=== PATIENT | male | born 1955 | race Caucasian/White ===

== ENCOUNTER 2023-06-26 19:36 | Inpatient (IN) | payer MEDICARE, OTHER, SELFPAY ==
[2023-06-26] VITALS (8 sets, daily range): BP systolic 124–162; BP diastolic 96–105
--- NOTE | 2023-06-26 17:54 | ED.GENMED ---
History of Present Illness
General
Chief Complaint: DVT/Possible Blood Clot
Source: patient
Exam Limitations: none
Time Seen by Provider: 06/26/23 17:10
Nursing documentation reviewed up to this point in time: agreed with
Travel History
Have you had any contact with someone who has COVID-19?: No
Do you have any symptoms of coronavirus? Fever > 100 degrees, chills, cough, shortness of breath, sore throat, loss of taste or smell, muscle aches, or headache?: No
History of Present Illness
History of Present Illness:
Patient sent to ED by PCP for popliteal aneurysm. States Sunday right leg below knee was 'rock hard'. Sunday he complained of hardness and severe pain to his leg. Today he was sent by PCP for US which reveals popliteal aneurysm 3.6x3.2cm. No
prior history of same. Denies any chest pain/pressure. Ambulating but with difficulty due to pain.
Past History
Past History
ED Past Medical History: Other (Kidney stone)
ED Past Surgical History: Other (wisdom tooth extraction)
Social History
Tobacco: Non-smoker
Alcohol: Daily (2 glasses of wine daily)
Drug: None
Personal:
Living: with family
Employment: Employed
Family History
Family History: Other (nc)
Review of Systems
Review of Systems
Allergies reviewed?: Yes
All Other Systems: ROS reviewed and negative except as documented in HPI and ROS
EENT: Reports no symptoms
Respiratory: Reports no symptoms
Cardiac: Reports other (right popliteal aneurysm. Pain RLE)
ABD/GI: Reports no symptoms
: Reports no symptoms
Musculoskeletal: Reports other (RLE pain)
Skin: Reports no symptoms
Neurological: Reports no symptoms
Psychiatric: Reports no symptoms
Phy Exam
General Physical Exam
General Presentation: well appearing and no apparent distress
General age: appears stated age
General Skin: warm and dry
General Habitus: normal
General Mental: alert
General Hydration: appears well hydrated
Cardiovascular Exam
Cardiovascular Exam: regular rate/rhythm and no edema
Pulmonary Exam
Pulmonary Exam: lungs clear and no respiratory distress
Musculoskeletal Exam
Musculoskeletal Exam: full ROM and neuro vasc intact (Calf pain with right foot flexion. Sensation intact but decreased compared to left. Stron DP. PT by doppler)
Skin Exam
Skin Exam: normal color, warm/dry and no rash
Psychiatric Exam
Psychiatric Exam: normal mood/affect
Course
Orders/Labs/Results
Orders:
Orders
06/26/23 Dinner
Regular
At Your Request: Full Participation
06/26/23 17:55
Heparin 7,000 units IV NOW STA
06/26/23 18:00
Heparin 54717 Units/250 ml 25,000 units in 250 ml IV PER PROTOCOL
Weight to be used for heparin protocol in kilograms (kg):: 87
Protocol:: DVT/PE
PTT Goal Range to be used:: PTT 73 to 111 seconds
Order type:: Initial
INITIAL Infusion Dose (UNITS/KG/hr) & then follow protocol:: 18 units/kg/hr
Infusion Dose in UNITS/hr & then follow protocol (UNITS/hr):: 1,600
INFUSION RATE in mL/hr & then follow protocol (mL/hr):: 16
For DVT/PE algorithm, re-bolus for low PTT?: Yes
PTT less than or equal to 64 seconds:: Re-bolus 80 units/kg (max 10,000units). Increase by 300 units/hr
(+ 3mL/hr)
PTT 64.1 to 72.9 seconds:: Re-bolus 40 units/kg (max 5,000 units). Increase by 200 units/hr
(+ 2mL/hr)
PTT 73 to 111 seconds:: Target Range. No change in rate.
PTT 111.1 to 130.9 seconds:: Decrease rate by 200 units/hr (- 2 mL/hr)
PTT 131 to 199.9 seconds:: HOLD for 1 hr. Then decrease by 300 units/hr (- 3mL/hr)
PTT greater than or equal to 200 seconds:: HOLD for 2 hrs & Notify Provider. Then decrease by 300 units/hr
(- 3mL/hr)
Lab follow-up:: Each change, PTT q6h until 2 consecutive are therapeutic. Then
PTT daily.
06/26/23 18:07
Complete Blood Count/With Diff Urgent
Comprehensive Metabolic Panel Urgent
PTT Urgent
Prothrombin Time Urgent
06/26/23 18:31
CT Abd Aorta Angio W/ Run Off Urgent
Comment:
Reason For Exam: WITH DELAYED IMAGING to eval tibial runoff
06/26/23 18:32
Vascular Surgery Consult Urgent
Consulting Provider: Ninoska Majano
Was physician already notified: Yes
06/26/23 18:47
Heparin 7,000 units IV PRN PRN
06/26/23 18:48
Heparin 3,500 units IV PRN PRN
06/26/23 19:19
Admit/Transfer Patient As Directed
Co-Sign Provider:
Level of Care: Inpatient admission
Assign to:: Medical/Surgical
Physician / Group: Chrissy/Hospitalist
Diagnosis: Right leg popliteal aneurysm
Reason for Hospitalization: popliteal artery aneurysm
Expected length of stay greater than two midnights?: Yes
ELOS- Estimated Length of Stay in days: 4
I certify the patient meets the requirements for IP care: Yes
06/26/23 19:20
Code Status As Directed
Resuscitation Status: Full Code
06/26/23 20:54
Acetaminophen [Tylenol] 650 mg PO Q4HPRN PRN
Oxycodone [Roxicodone] 5 mg PO Q4HPRN PRN
06/26/23 20:54
EKG [Electrocardiogram (*1)] Routine
Reason for Study: PreOp
Activity As Directed
Activity Level: Out of Bed-Early Mobility
Vital Signs As Directed
Frequency: Per unit guidelines
CXR2 [CR Chest - 2 Views ] Routine
Comment:
Reason For Exam: pre-op
06/26/23 21:41
Urinalysis Reflex To Culture Routine
Date Specimen was Collected: 06/26/23
Time Specimen was Collected: 21:31
06/27/23 01:20
PTT Urgent
06/27/23 06:49
Basic Metabolic Panel IN AM
Cardiovascular Evaluation IN AM
Complete Blood Count/With Diff IN AM
Abnormal Lab Results
06/26/23
18:07
MCH 31.4 H pg
(27.0-31.0)
AST 65 H U/L
(17-59)
06/26/23 18:07
06/26/23 18:07
Vital Signs
Initial and Last Documented VS:
Initial Vital Signs
Temp Pulse Resp BP Pulse Ox
97.9 F 75 18 162/100 98
06/26/23 16:19 06/26/23 16:19 06/26/23 16:19 06/26/23 16:19 06/26/23 16:19
Last Documented Vital Signs
Temp Pulse Resp BP Pulse Ox
98.6 F 91 14 114/78 96
06/27/23 16:30 06/27/23 17:30 06/27/23 17:30 06/27/23 17:30 06/27/23 17:53
*Radiology
Radiology exam reviewed: radiology read reviewed
*Pulse Oximetry
Patient hypoxic: no
*Critical Care Note
Total Time (30-74mins, 75-104mins- exclusive of procedures): Not Applicable
Update Note
Update Note:
Case discussed with Dr. Majano. Heparin infusion, CTA abd. aorta with runoff ordered at her request. He will be admitted to hospitalist service, Dr. Majano to consult.
ED Attending Note
-
Portions of this chart may have been created with voice recognition software.� Occasional wrong word or��sound alike� substitutions may have occurred due to the inherent limitations of voice recognition software.
Discharge Plan
Departure
Patient Disposition: Admit
Date of Disposition: 06/26/23
Time of Disposition: 18:06
Presentation/result/management discussed w/ accepting MD/DO: Hospitalist
Patient with high blood pressure during this ER visit?: No
Condition: Fair
Covid-19: Not Applicable
Discharge Problem:
Aneurysm artery, popliteal
Interventions
Interventions:
*Risk Screen - Suicide Last Done: 06/26/23 16:23
*General Assessment Last Done: 06/26/23 16:23
*Neglect/Abuse Screening Last Done: 06/26/23 16:23
ED- Fall Risk Assessment Last Done: 06/26/23 18:37
*ED COVID-19 Vaccine History Last Done: 06/26/23 18:35
*Nursing Disposition Last Done: 06/27/23 11:13
ED- Cardiac Assessment Last Done: 06/26/23 18:37
ED- Pulmonary Assessment Last Done: 06/26/23 18:37
ED-Peripheral Vascular Assessment Last Done: 06/26/23 18:37
ED-Skin Assessment Last Done: 06/26/23 18:37
Discharge Date and Time
Discharge Date/Time: 06/27/23 11:16
--- NOTE | 2023-06-26 17:54 | EDRN ---
Pt moved from [facility] to room #20 in [facility] at this time.
[2023-06-26 18:15] LABS: % Basophils 0.9 % (0-2); % Eosinophils 3.7 % (0-6); % Immature Granulocytes 0.4 % (0-0.5); % Lymphocytes 29.1 % (20.5-51.1); % Monocytes 8.1 % (1.7-9.3); % Neutrophils 57.8 % (42.2-75.2); Absolute Basophils 0.1 10^3/uL (0-0.2); Absolute Eosinophils 0.3 10^3/uL (0-0.7); Absolute Monocytes 0.6 10^3/uL (0.1-0.6); Absolute Neutrophils 4.1 10^3/uL (1.4-6.5); Mean Corp Hgb Conc. 35.6 g/dL (33.0-37.0); Mean Corpuscular Hgb 31.4 pg (27.0-31.0); Mean Corpuscular Volume 88.4 fL (80.0-94.0); Mean Platelet Volume 9.4 fL (7.4-10.4); Nucleated Red Blood Cells % 0 % (-); Platelet Count 270 10^3/uL (130-400); Red Blood Cell Count 5.09 10^6/uL (4.70-6.10); Red Cell Dist. Width 12.4 % (11.5-14.5)
[2023-06-26 18:28] LABS: INR 1.04; PT 13.4 Sec (11.4-14.6)
[2023-06-26 18:29] LABS: APTT 32.2 Sec (23.4-35.0)
--- NOTE | 2023-06-26 18:32 | EDRN ---
Dr. Lowe in room w/ pt.
--- NOTE | 2023-06-26 18:42 | EDRN ---
Pharmacy called to verify heparin
[2023-06-26 18:49] LABS: ALT (SGPT) 43 U/L (0-50); AST (SGOT) 65 U/L (17-59); Albumin 4.8 g/dl (3.5-5.0); Alkaline Phosphatase 94 U/L (38-126); Blood Urea Nitrogen 10 mg/dl (9-20); Calcium 9.6 mg/dl (8.4-10.2); Carbon Dioxide 28 mmol/L (22-30); Chloride 103 mmol/L (98-107); Glucose 93 mg/dl (70-99); Potassium 4.6 mmol/L (3.5-5.1); Sodium 138 mmol/L (135-145); Total Bilirubin 0.5 mg/dl (0.2-1.3); Total Protein 7.6 g/dl (6.3-8.2); eGFR > 60.00
[2023-06-26] MEDS: HEPARIN 7000 UNITS IV (18:52)
[2023-06-26] MEDS: HEPARIN 25000 UNITS/250 ML IV (18:53)
--- NOTE | 2023-06-26 19:25 | W.PN.HOSP.TC ---
Addendum entered and electronically signed by Duane Lowe MD 06/26/23 20:01:
elevated BP noted, will start Toprol XL
Original Note:
Today's Communication/Plan
-
for CT-A now
Assessment / Plan
Assessment / Plan
Rt popliteal artery aneurysm. No hx of trauma to the area
The right common femoral, femoral, popliteal, peroneal, and posterior tibial veins are patent. There is no sonographic evidence for deep venous thrombosis.
A popliteal artery aneurysm measures 3.6 x 3.2 cm. Peripheral hypoechoic thrombus is demonstrated within the aneurysm.
Regular Etoh consumption
Pt states generally 2 glasses of wine per day, but can go many days without Etoh and does not have a problem
P; Heparin drip ordered
check lipid profile
Vas Surgery consult
Anticipated Discharge: > 48 hours
Subjective/Interval History
-
Date of Service: June 26, 2023
Rt popliteal pain onset 06/22, eased, recurred again 06/24 eased and then became more intense this morning
Objective Data
-
Labs:
Laboratory Results
06/26/23
18:07
WBC 7.0
Hgb 16.0
Hct 45.0
Plt Count 270
PT 13.4
INR 1.04
APTT 32.2
Sodium 138
Potassium 4.6
Chloride 103
Carbon Dioxide 28
BUN 10
Creatinine 0.7
Glucose 93
Calcium 9.6
Total Bilirubin 0.5
AST 65 H
ALT 43
Alkaline Phosphatase 94
Vital Signs:
Vital Signs
Temp Pulse Resp BP Pulse Ox
98.2 F 82 16 147/105 98
06/26/23 18:35 06/26/23 18:35 06/26/23 18:35 06/26/23 18:35 06/26/23 18:35
Review of Systems
-
History Source: Patient
Constitutional: Denies Fever
EENT: Reports No Symptoms Reported
Respiratory: Reports No Symptoms
Cardiac: Reports No Symptoms
Abdomen/GI: Reports No Symptoms
Musculoskeletal: Reports Other (rt popliteal pain)
Physical Exam
-
General: Well Developed, Well Nourished and No Apparent Distress
HEENT: Normocephalic, Atraumatic and Moist Mucous Membranes
Respiratory: Clear to Auscultation; Negative Wheezes, Rales or Rhonchi
Cardiac: Regular Rhythm and S1/S2
GI: Soft, Nontender and Nondistended
Musculoskeletal: No Clubbing, No Cyanosis, No Edema and Other (normal peripheral pulses, tender in rt popliteal fossa); Negative Edema, Right Lower Extrem or Edema, Left Lower Extrem
Neuro: Awake, Alert and Oriented
[2023-06-26] MEDS: TOPROL XL 25 MG PO (21:38)
[2023-06-26 21:56] LABS: Urine Albumin Negative (Neg - Trace); Urine Bilirubin Negative (Negative); Urine Character Clear (Clear); Urine Color Yellow; Urine Glucose Negative (Negative); Urine Ketone Trace (Negative); Urine Leukocyte Negative (Negative); Urine Nitrite Negative (Negative); Urine Occult Blood Negative (Negative); Urine Specific Gravity 1.005 (<1.030); Urine Urobilinogen Negative (Neg - 1+)
[2023-06-27] VITALS (38 sets, daily range): BP systolic 91–126; BP diastolic 66–93; BMI 26.9
[2023-06-27 01:51] LABS: APTT 122.1 Sec (23.4-35.0)
[2023-06-27 07:11] LABS: % Basophils 0.9 % (0-2); % Eosinophils 3.8 % (0-6); % Immature Granulocytes 0.3 % (0-0.5); % Lymphocytes 25.6 % (20.5-51.1); % Monocytes 9.4 % (1.7-9.3); Absolute Basophils 0.1 10^3/uL (0-0.2); Absolute Eosinophils 0.2 10^3/uL (0-0.7); Absolute Lymphocytes 1.5 10^3/uL (1.2-3.4); Absolute Monocytes 0.6 10^3/uL (0.1-0.6); Absolute Neutrophils 3.5 10^3/uL (1.4-6.5); Hemoglobin 14.8 g/dL (13.0-18.0); Mean Corp Hgb Conc. 34.4 g/dL (33.0-37.0); Mean Corpuscular Hgb 31.1 pg (27.0-31.0); Mean Corpuscular Volume 90.3 fL (80.0-94.0); Mean Platelet Volume 9.9 fL (7.4-10.4); Nucleated Red Blood Cells % 0 % (-); Platelet Count 231 10^3/uL (130-400); Red Blood Cell Count 4.76 10^6/uL (4.70-6.10); Red Cell Dist. Width 12.6 % (11.5-14.5); White Blood Cell Count 5.9 10^3/uL (4.8-10.8)
[2023-06-27 07:18] LABS: APTT 87.2 Sec (23.4-35.0)
[2023-06-27 07:30] LABS: Blood Urea Nitrogen 11 mg/dl (9-20); Carbon Dioxide 24 mmol/L (22-30); Chloride 106 mmol/L (98-107); Estimated Creatinine Clearance 104 ml/min; Glucose 97 mg/dl (70-99); HDL Cholesterol 50 mg/dl; LDL Cholesterol, Calculated 138 mg/dl; Potassium 4.4 mmol/L (3.5-5.1); Sodium 135 mmol/L (135-145); Total Cholesterol 215 mg/dl (50-199); Triglyceride 139 mg/dl (10-149); Very Low Density Lipoprotein 27 mg/dl (0-30); eGFR > 60.00
--- NOTE | 2023-06-27 07:48 | W.PN.UPDATE ---
Update Note
Progress Note Update
Seen and examined in the emergency room with LAW EXAMINER. Full consultation to follow. Briefly 67-year-old with no major medical history. No prior leg pain. On Sunday 4 days ago he relatively acutely developed pain through the right calf. He has a
history of sciatic pain that radiates down from the back towards the buttock and thigh. But this was very different. It was only below the knee. Was very painful on and off the next couple days to the point that he could not even walk. Notes
that every time he tries to bend his leg he has severe pain in the back of the calf. Imaging in the emergency room demonstrated popliteal artery aneurysm. Patient thinks that his father may have had a popliteal artery aneurysm. He is not sure but
he had an incision behind the knee to repair what sounds like an aneurysm. Denies any personal or family history of abdominal or thoracic aortic aneurysms that he is aware of.
On exam/he is awake and alert. He is in no acute distress. Breathing is unlabored. Abdomen is soft. Lower extremity with 2+ right-sided femoral pulse palpable, 3+ popliteal pulse. Easily palpable pulsatile mass. He is not tender overlying the
pulsatile mass. Below the knee and the calf it is very soft. His compartments are all soft. There is no swelling or fullness. However he is very tender in the posterior compartment muscles. Foot is warm and well-perfused with palpable pedal
pulses. Left side with 2+ femoral, popliteal, pedal pulses palpable as well.
CT angiogram reviewed. Fairly sizable popliteal artery aneurysm with difficulty discerning extent of aneurysm to the surrounding muscle planes but likely about 3.7 x 3.3 cm aneurysm with significant mural thrombus. Flow lumen is preserved however.
At the edge of the mural thrombus there is attenuation of the contrast suggesting later color that may indicate layering.
Plan/ Popliteal artery aneurysm right lower extremity causing significant pain. It is not nerve type pain but rather pain and tenderness in the calf muscles. On the CT scan based on the findings I cannot tell whether there is been a localized
contained rupture that is causing this pain. Regardless based on the size and his pain etiology and no other clear-cut cause would recommend repair. Relatively urgently. Discussed this all with him. Discussed that his pain in the muscles is not
typical of popliteal artery aneurysm and therefore there is the possibility of this not relieving his pain in the calf. However regardless would recommend repair based on the size, extent of mural thrombus, concern for possible risk of rupture
based on attenuation of contrast. Discussed procedure at length. Discussed options including endovascular pair versus open surgical repair. Based on location, his candidacy for repair, would recommend posterior approach for open surgical
popliteal artery aneurysm repair. Patient understands all wishes to proceed. Will add him onto the schedule for urgent repair RIGHT popliteal artery aneurysm today.
[2023-06-27] MEDS: PERIDEX 0.12% ORAL RINSE 15 ML PO (09:02)
[2023-06-27] MEDS: BACTROBAN 2% OINTMENT 2 APPLIC NASAL (09:02)
--- NOTE | 2023-06-27 09:16 | W.PN.HOSP.TC ---
Today's Communication/Plan
-
Vasc Surg intervention now
Assessment / Plan
Assessment / Plan
Rt popliteal artery aneurysm. No hx of trauma to the area
The right common femoral, femoral, popliteal, peroneal, and posterior tibial veins are patent. There is no sonographic evidence for deep venous thrombosis.
A popliteal artery aneurysm measures 3.6 x 3.2 cm. Peripheral hypoechoic thrombus is demonstrated within the aneurysm.
Reviewed with Dr. Dixon, plan is for vascular intervention this morning
Regular Etoh consumption
Pt states generally 2 glasses of wine per day, but can go many days without Etoh and does not have a problem
Borderline HTN
started on Toprol XL, with BP 120/91, will continue for now
Chol 215
HDL 50
LDL 138
will discuss with Vasc surg if there preference would be to add statin
P; Heparin drip ordered, will be stopped for planned intervention
Vasc Surgery consult appreciated
Anticipated Discharge: 24 - 48 hours
Subjective/Interval History
-
Date of Service: June 27, 2023
No chest pain, leg does not hurt as much this morning
Objective Data
-
Labs:
Laboratory Results
06/27/23 06/27/23 06/27/23
01:20 06:49 13:00
WBC 5.9
Hgb 14.8
Hct 43.0
Plt Count 231
APTT 122.1 H 87.2 H Pending
Sodium 135
Potassium 4.4
Chloride 106
Carbon Dioxide 24
BUN 11
Creatinine 0.7
Glucose 97
Calcium 9.0
Vital Signs:
Vital Signs
Temp Pulse Resp BP Pulse Ox
98.2 F 74 12 120/90 95
06/27/23 08:37 06/27/23 08:30 06/27/23 08:30 06/27/23 08:00 06/27/23 08:30
Review of Systems
-
History Source: Patient
Constitutional: Denies Fever
EENT: Reports No Symptoms Reported
Respiratory: Reports No Symptoms
Cardiac: Reports No Symptoms
Abdomen/GI: Reports No Symptoms
Musculoskeletal: Reports Other (rt popliteal pain)
Physical Exam
-
General: Well Developed, Well Nourished and No Apparent Distress
HEENT: Normocephalic, Atraumatic and Moist Mucous Membranes
Respiratory: Clear to Auscultation; Negative Wheezes, Rales or Rhonchi
Cardiac: Regular Rhythm and S1/S2
GI: Soft, Nontender and Nondistended
Musculoskeletal: No Clubbing, No Cyanosis, No Edema and Other (normal peripheral pulses, tender in rt popliteal fossa); Negative Edema, Right Lower Extrem or Edema, Left Lower Extrem
Neuro: Awake, Alert and Oriented
--- NOTE | 2023-06-27 09:44 | W.SUR.PREOP ---
Pre-Operative Surgical Note
-
I have examined this patient prior to the performance of the scheduled procedure.
The patient's condition is unchanged from the time of the current History and
Physical and the patient is able to undergo the scheduled procedure.
Procedure again reviewed. Risk/benefits/alternatives all fully discussed including but not limited to bleeding, infections, artery/vein/nerve injuries, limb threat. He understands all wishes to proceed.
--- NOTE | 2023-06-27 10:33 | CON.VAS ---
Consultation
Consultation Request
Date/Time Consultation Performed: 06/27/2023 0750
Requesting Provider: Hospitalist
Performing Provider: Rosangela Decker NP-C for Prince Dixon MD
Reason for Consultation: Right popliteal artery aneurysm
Medical History
-
Chief Complaint: Right calf pain
History of Present Illness:
This is a 67-year-old male with with no major medical history. No prior leg pain or vascular intervention. Per patient he reports onset of right lower extremity calf pain roughly four days ago (Sunday). He endorses pain was an acute onset, and
has worsened exponentially since onset. He has a history of sciatic pain that radiates down from the back towards the buttock and thigh, but endorses right calf pain is different. It was only below the knee. Was very painful on and off the next
couple days to the point that he could not even walk. Notes that every time he tries to bend his leg he has severe pain in the back of the calf. Imaging in the emergency room demonstrated popliteal artery aneurysm. Patient thinks that his father
may have had a popliteal artery aneurysm. He is not sure but he had an incision behind the knee to repair what sounds like an aneurysm. Denies any personal or family history of abdominal or thoracic aortic aneurysms that he is aware of.
Past Medical History
Past Medical History: Other
Past Surgical History: Other ([place] tooth extraction)
Social History
Tobacco: Former Smoker (Quit 35 years ago)
Allergies / Home Medications
Allergy/AdvReac Type Severity Reaction Status Date / Time
No Known Allergies Allergy Verified 06/26/23 16:26
�Medication �Instructions �Recorded �Confirmed �Type
No Meds [No Current Medications] 06/26/23 06/26/23 History
Review of Systems
-
History Source: Patient
Constitutional: Reports No Symptoms
EENT: Reports No Symptoms
Respiratory: Reports No Symptoms
Cardiac: Reports No Symptoms
Abdomen/GI: Reports No Symptoms
: Reports No Symptoms
Musculoskeletal: Reports Other (Significant right calf pain)
Skin: Reports No Symptoms
Neurological: Reports No Symptoms
Endocrine: Reports No Symptoms
Physical Exam
Vital Signs
Temp Pulse Resp BP Pulse Ox
98.2 F 75 16 120/91 100
06/27/23 08:37 06/27/23 09:11 06/27/23 09:11 06/27/23 09:11 06/27/23 09:11
Lab Results
06/27/23 06:49
06/27/23 06:49
Physical Exam
General: No Apparent Distress and Comfortable
HEENT: Normocephalic, Anicteric and Atraumatic
Respiratory: Non Labored Respirations
Cardiac: Negative JVD
GI: Soft, Non Tender and Non Distended
Musculoskeletal: Other ( Easily palpable right posterior knee pulsatile mass. No tenderness over the pulsatile mass. Below the knee and the calf it is very soft. His compartments are all soft. There is no swelling or fullness. Tender to
palpation around right lower calf.)
Skin: Warm and Dry
Neuro: AO x 3
Pulses: Bilateral Femoral: +2, Bilateral Popliteal: +2, Bilateral Dorsalis Pedis: +2 and Bilateral Posterior Tibial: +2
Assessment / Plan
-
Assessment: 67 year-old male with popliteal artery aneurysm confirmed by ultrasound and CT scan causing significant pain
Plan:
Popliteal artery aneurysm right lower extremity, would recommend repair based on the size, extent of mural thrombus, concern for possible risk of rupture based on attenuation of contrast. Dr Dixon discussed procedure at length. Discussed options
including endovascular pair versus open surgical repair. Based on location, his candidacy for repair, would recommend posterior approach for open surgical popliteal artery aneurysm repair. Patient understands all wishes to proceed.
Will add him onto the schedule for urgent repair RIGHT popliteal artery aneurysm today.
I performed this shared service with the attending. I evaluated the patient [id number] and have entered clinical documentation as shown in the encounter note. I performed the following component(s): history and physical exam. Note that medical
decision making is not final until attested by vascular attending.
--- NOTE | 2023-06-27 13:53 | W.SUR.POST ---
Surgical Immediate Post Op
Note
Pre Op Diagnosis: Right popliteal artery aneurysm
Post Op Diagnosis: Right popliteal artery aneurysm
Procedure Performed: Open repair of right popliteal artery aneurysm, Dacron graft
Primary Surgeon: Prince Dixon MD
Assist: Rosangela Decker, TRANSFORMATION SPECIALIST-C
Anesthesia: GETA
Estimated Blood Loss: 35 mL
Fluids: See anesthesia flowsheet
Drains/Shunts: N/A
Specimens/Cultures: Right popliteal aneurysmal sac and thrombin
Doppler/Duplex/Angio (Y/N): Y, Doppler
Complications: None
Operative Findings: Successful repair of right popliteal artery aneurysm with palpable DP pulse following procedure
[2023-06-27 14:37] LABS: Hematocrit 40.1 % (39.0-52.0); Hemoglobin 14.4 g/dL (13.0-18.0); Mean Corp Hgb Conc. 35.9 g/dL (33.0-37.0); Mean Corpuscular Volume 89.1 fL (80.0-94.0); Mean Platelet Volume 9.6 fL (7.4-10.4); Platelet Count 224 10^3/uL (130-400); Red Cell Dist. Width 12.5 % (11.5-14.5); White Blood Cell Count 10.6 10^3/uL (4.8-10.8)
[2023-06-27 14:46] LABS: APTT 31.1 Sec (23.4-35.0)
[2023-06-27 14:53] LABS: Blood Urea Nitrogen 12 mg/dl (9-20); Calcium 8.2 mg/dl (8.4-10.2); Carbon Dioxide 21 mmol/L (22-30); Chloride 106 mmol/L (98-107); Estimated Creatinine Clearance 91 ml/min; Glucose 107 mg/dl (70-99); Sodium 136 mmol/L (135-145); eGFR > 60.00
[2023-06-27 15:03] LABS: Potassium 4.6 mmol/L (3.5-5.1)
[2023-06-27] MEDS: DILAUDID 0.25 MG IV (16:06)
[2023-06-27] MEDS: NSS 1000 IV (16:33)
[2023-06-27] MEDS: TOPROL XL PO (16:51)
--- NOTE | 2023-06-27 17:17 | OR.RPT ---
Operative Report
Operative Report
PROCEDURE DATE: 06/27/2023
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
Postoperative diagnosis: Same
Procedure: Open surgical repair (via posterior approach) of right popliteal artery aneurysm with interposition 8 mm Hemashield dacron graft placement.
Surgeon: Zack
Hemmer Chainstitch: YU Decker required for all aspects of procedure including assistance with traction/countertraction, following of suture line, assistance with closure.
Complications: None
Anesthesia: General
Indications for procedure:
Patient presented the emergency room with 4 days of right calf significant pain with acute onset. Imaging demonstrated large right popliteal artery aneurysm with loss of planes between the muscle and the popliteal artery aneurysm. Significant
mural thrombus burden. Raise some concern for possible symptomatic nature, as well as possible contained leak although this was not definitive. I discussed with him extensively the findings. I discussed that he did have calf tenderness which may
or may not have been due to the aneurysm and compressive effects versus contained rupture versus other etiology. However given the size and all these concerns, we felt repairing this in an expeditious/urgent manner was appropriate.
Risk/benefits/alternatives were all fully discussed. Patient understood all wish to proceed.
Description of procedure:
Patient was identified brought to the operating room placed on the table in PRONE position. After the adequate administration of anesthesia he was prepped and draped in the standard surgical fashion. A standard preoperative timeout was undertaken
and everybody was in agreement the plan. A lazy S type incision was carried out with a 15 blade scalpel in the posterior popliteal fossa. Dissection proceeded with the electrocautery through the subcutaneous tissue. The small saphenous vein was
identified and carefully dissected down towards the fascial layer. The fascia was then divided. The small saphenous vein was ligated between silk ties and then divided. In addition, an additional superficial venous branch was identified (this was
seen on ultrasound as well and did continue onto the popliteal vein) and this was ligated between silk ties and divided. The tibial nerve was clearly identified laterally. Just medial to this and deep to this was the deep vein (popliteal vein)
which I clearly identified. There were some crossing vein and an artery branch overlying the popliteal artery aneurysm that I could palpate. I dissected cephalad to these between the heads of the muscle and was able to identified in the deeper
tissue the popliteal artery where it was more normal. I very carefully circumferentially dissected this and passed a vessel loop around it. This was double looped but not yet tightened. Now I had proximal control. I then turned my attention
beyond the popliteal artery aneurysmal area (beyond the crossing vessels overlying) distally to try to identify the outflow. I carefully dissected here identifying the popliteal vein. I then dissected just medially and deep to the vein and was
able to identify the artery here. I carefully dissected away from surrounding structures and great care to avoid any injury to structures. I passed a vessel loop around it and double looped it but did not tighten it. Now I had proximal and distal
control. Note this dissection proved slightly lengthy due to the inflammatory nature of the popliteal artery aneurysm and stickiness to the surrounding tissues.
I now carefully teased out the structures overlying the popliteal artery aneurysm. There was a collateral arterial branch which I had seen emanating from the aneurysm on the prior CT scan. This was ligated between silk ties and then divided.
There were a couple of vein branches that were also ligated between silk ties and divided. There was some other soft tissue and muscle fibers that were carefully divided. These were also all tissues coursing medially and therefore I confirmed that
there was no major nerve structures in these tissue. Now I have exposed proximally and distally the artery where there was normal and I had the popliteal artery aneurysm exposed on his posterior surface facing superficially in my field now. I now
gave the patient an appropriate dose of 5000 units of intravenous heparin. Once this had circulated I then clamped the popliteal artery distally and then proximally (proximally with a Derra clamp). Now I mobilized the popliteal artery aneurysm
carefully dissecting away from surrounding structures on the medial and lateral edges so as to allow adequate repair here. It was stuck to the tissues and so I carefully dissected this. Once side mobilized the medial lateral edges and was
satisfied I then clipped a couple branches in the vicinity of my repair field emanating directly from the aneurysmal artery. Once I did this I used an 11 blade to open the aneurysm and extended it with the Minor scissor. There was significant
chronic thrombus which I removed. I elected not to mobilize the posterior wall as it was stuck to the surrounding tissues. However I did cut out the medial and lateral wall and sent for pathology. The thrombus was also sent for pathology. There
was small backbleeding branches proximally and distally which were clipped posteriorly in my field (on the anterior side of the artery). I also oversewed using 3-0 silk suture ligature a couple lightly backbleeding branches. Now I had full
hemostasis in the bed of the popliteal artery aneurysm. I then transected the artery/aneurysm proximally and distally where the artery normalized in its proximal and distal extent.
I now had good reasonable arterial ends to so my interposition graft. There was a slight size mismatch but I felt I would spatulated the artery distally in order to accommodate. I therefore then used an 8 mm Hemashield dacron graft and brought
onto the field. I then sewed this and the end to the proximal popliteal artery using a running 5-0 Prolene suture. I completed and tied down my suture line. I then clamped the graft in the distal aspect and then temporarily released my inflow
clamp. The suture line appeared hemostatic. Therefore then reclamped the artery proximally. I then trimmed my graft. I then spatulated the artery posteriorly in my field. I then sewed an end and anastomosis to the distal aspect of the graft
using a running 5-0 Prolene suture. Prior to completing and tying down my suture line I backbled the [place] popliteal artery. I then forward bled the [place] popliteal artery well to flush out any potential debris as well. I then reclamped the
artery and vigorously flushed with heparinized saline. Next I completed and tied down my suture line. Next I released my proximal and distal clamps. There is excellent pulsatile flow through the artery. A single 6-0 Prolene and 5-0 Prolene
[id number] type suture in were placed in the distal suture line for hemostasis. Upon placement of the sutures I had full hemostasis now. I had excellent pulsation in the artery distal to the anastomosis. Doppler signal confirmed excellent
flow. I was able to palpate a DP pulse on the foot at this point. At this point is very satisfied. I irrigated the entire site. I gave protamine to reverse the heparin. I achieved and confirmed full hemostasis. I then closed in layers using a
few interrupted 2-0 Vicryl sutures to reapproximate the muscle layer. I then used interrupted 3-0 Vicryl layer to realign the deep dermal layer. Finally we used a running 4-0 Monocryl running subcuticular stitch. Dermabond was also applied. The
patient tolerated the procedure well.
[2023-06-27] MEDS: DILAUDID 0.5 MG IV (17:25)
--- NOTE | 2023-06-27 17:44 | PTCARENOTE ---
Pt received from PACU, complaining of 6/10 pain behind his knee. Ox3, somewhat lethargic on arrival but perked up after seeing his family. Incision tender, + pedal pulses BL. NSR on tele. Breath sounds diminished throughout, currently on 2L NC sat
of 96%. Pt not complaining of any nausea, states that he feels ready to eat, regular diet ordered. Wadsworth catheter in place draining leno urine. Pt ordered bedrest with q1 hour pulse checks. IV sites intact. Call bill within reach. Pt makes needs
known.
[2023-06-27] MEDS: TOPROL XL 25 MG PO (19:58)
[2023-06-28] VITALS (11 sets, daily range): BP systolic 88–135; BP diastolic 66–103
--- NOTE | 2023-06-28 00:10 | PTCARENOTE ---
Pt received at 19:00, initial assessment as documented. Pt pleasant and cooperative. Pt continues to deny pain. B/L DP pulses palpable. Skin warm, pink, with good cap refill. Pt states 'discomfort' at incision site with moving leg, incision well
approximated, localized erythema unchanged. Safe environment maintained, call bill within reach.
[2023-06-28] MEDS: NSS 1000 IV (00:29)
[2023-06-28 04:21] LABS: Hematocrit 36.8 % (39.0-52.0); Hemoglobin 12.9 g/dL (13.0-18.0); Mean Corp Hgb Conc. 35.1 g/dL (33.0-37.0); Mean Corpuscular Volume 91.3 fL (80.0-94.0); Mean Platelet Volume 9.7 fL (7.4-10.4); Platelet Count 241 10^3/uL (130-400); Red Blood Cell Count 4.03 10^6/uL (4.70-6.10); Red Cell Dist. Width 12.4 % (11.5-14.5); White Blood Cell Count 8.3 10^3/uL (4.8-10.8)
[2023-06-28 04:43] LABS: INR 1.12; PT 14.5 Sec (11.4-14.6)
[2023-06-28 04:44] LABS: Blood Urea Nitrogen 13 mg/dl (9-20); Calcium 8.1 mg/dl (8.4-10.2); Carbon Dioxide 23 mmol/L (22-30); Chloride 106 mmol/L (98-107); Estimated Creatinine Clearance 121 ml/min; Glucose 143 mg/dl (70-99); Potassium 4.1 mmol/L (3.5-5.1); Sodium 136 mmol/L (135-145); eGFR > 60.00
--- NOTE | 2023-06-28 07:17 | W.PN.VS ---
Today's Communication / Plan
-
See plan below for today 06/28/2023.
Assessment/Plan
-
Postoperative day #1 status post open surgical repair of symptomatic right popliteal artery aneurysm via posterior approach with interposition 8 mm Hemashield dacron graft.
� Doing very well overall. No significant postoperative pain.
� Good graft function.
� Remove Wadsworth catheter today.
� Out of bed, ambulate.
� Postoperative activity instructions given verbally.
� Continue 81 mg daily aspirin antiplatelet therapy.
� If feeling very well and pain controlled/minimal, possible discharge this afternoon. Otherwise 1 more night in the hospital.
-
Total Time Spent with Patient (in minutes): 15
Subjective Data
-
Date of Service: June 28, 2023
Seen and examined. Patient is without complaints. Denies any significant pain at the surgical site. No pain in his foot. His preoperative right calf pain is fully resolved.
Objective Data
-
Vital Signs
Temp Pulse Resp BP Pulse Ox
98.4 F 85 10 100/79 98
06/28/23 04:25 06/28/23 06:00 06/28/23 06:00 06/28/23 06:00 06/28/23 06:00
Intake and Output
06/27/23 06/28/23 06/29/23
06:59 06:59 06:59
Intake Total 1230 / 1230
Output Total 1275 / 1275
Balance -45 / -45
Intake:
IV fluids (Total) 1230 / 1230
NSS 1230 / 1230
Output:
Urine, Wadsworth 1275 / 1275
Lab Results
06/28/23 04:10
06/28/23 04:10
Calcium 8.1 mg/dl (8.4-10.2) L 06/28/23 04:10
Total Bilirubin 0.5 mg/dl (0.2-1.3) 06/26/23 18:07
AST 65 U/L (17-59) H 06/26/23 18:07
ALT 43 U/L (0-50) 06/26/23 18:07
Alkaline Phosphatase 94 U/L (38-126) 06/26/23 18:07
Total Protein 7.6 g/dl (6.3-8.2) 06/26/23 18:
Albumin 4.8 g/dl (3.5-5.0) 06/26/23 18:07
Physical Exam
-
Afebrile.
Awake and alert.
Right lower extremity popliteal fossa incision is clean dry and intact, no hematoma.
Right calf is soft, nontender.
Right foot is warm with easily palpable 2+ DP pulse.
Motor/sensory throughout the right lower extremity including the foot and ankle fully intact.
Labs reviewed.
[2023-06-28] MEDS: TOPROL XL 25 MG PO (07:57)
[2023-06-28] MEDS: DILAUDID 0.5 MG IV (07:58)
--- NOTE | 2023-06-28 08:24 | PTCARENOTE ---
0700 patient in bed. SR 79 BP via left upper arm 108/77 MAP 88. RR 13 98RA . Indwelling Wadsworth draining clear yellow urine. Wadsworth removed at 0820. RT leg behind knee stiff like pain 8/10 pain level. Dilaudid adm per prn order. Pedal pulses strong to
palpation. Out of bed to chair with minimum technical services assistant. Denies dizziness. call bill with reach
--- NOTE | 2023-06-28 10:20 | CM ---
Addendum entered by Momo Cheema 06/28/23 14:29:
Discharge order is noted.
Both pt and his spouse Nicole are aware. Pt expressed his agreement with discharge. Pt stated he is able to walk independently and does not need any VN services upon the discharge.
D/C plan: [facility] no needs. Spouse to transport.
Original Note:
CM following re: discharge planning.
Discussed in Rounds, reviewed pt's chart, met with pt.
Pt is a 67 year old male admitted with primary dx of POD #1 status post open surgical repair of symptomatic right popliteal artery aneurysm.
Pt reports he lives with spouse in a 2SH, 3 steps to enter, has 4 supportive children. 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
Per vascular surgery, if pt doing well today, PT/OT to evaluate and then pt possibly will be discharged today or tomorrow. Pt is aware and he stated he still feeling pain. IMM reviewed, placed in chart, pt has a copy.
PCP: Duane Mixon
Pharmacy: [facility]
D/C plan; home with anticipated no needs. Spouse to transport at discharge.
CM will follow with discharge plan updates as hospitalization progresses
--- NOTE | 2023-06-28 10:21 | CON.INTV ---
Consultation
Consultation Request
Date/Time Consultation Requested: 06/27/2023
Date/Time Consultation Performed: 06/28/2023
Requesting Provider: Dr. Dixon
Performing Provider: Dr. Galindo Oliva
Reason for Consultation: Postoperative ICU care
Medical History
-
History of Present Illness:
67-year-old man who is relatively healthy developed right popliteal. Pain on 06/23/2023. The pain was progressive and incapacitating. At that time, he presented himself to the emergency room at [facility]. He was diagnosed with a
popliteal artery aneurysm.
Past Medical History
Past Medical History: None
Social History
Tobacco: Non-smoker
Alcohol: Daily (2 glasses of wine)
Drug: None
Personal:
Family History
Family History: Reviewed & Not Pertinent
Allergies / Home Medications
Allergies
Allergy/AdvReac Type Severity Reaction Status Date / Time
No Known Allergies Allergy Verified 06/26/23 16:26
Home Medications
�Medication �Instructions �Recorded �Confirmed �Last Taken �Type
No Meds [No Current Medications] 06/26/23 06/26/23 Unknown History
Review of Systems
-
History Source: Patient
All other systems: Negative unless noted
Vitals / Labs / Diagnostic Testing
Vital Signs
Temp Pulse Resp BP Pulse Ox
98 F 85 10 104/81 98
06/28/23 07:36 06/28/23 07:57 06/28/23 06:00 06/28/23 07:57 06/28/23 06:00
Lab Data
06/28/23 04:10
06/28/23 04:10
Laboratory Results
06/27/23 06/27/23 06/28/23
13:00 14:24 04:10
PT Cancelled 14.5
INR Cancelled 1.12
APTT Cancelled 31.1 28.0
Diagnostic Testing:
Physical Exam
-
HEENT: Normocephalic
Cardiovascular: S1/S2
Respiratory: Clear and Non-Labored Respirations
GI: Soft and Non Distended
Neurology: Awake, Alert, Oriented and No Motor Deficits
Skin: Other (Peripheral pulses present. Right popliteal fossa incision is intact without hematoma.)
General: Comfortable
Assessment
-
67-year-old man who was admitted with popliteal fossa pain. Diagnosed with popliteal artery aneurysm. Underwent repair and transferred to the critical care unit for postoperative care.
Status post open surgical repair of the right popliteal artery aneurysm 06/27/2023
Postoperative pain
Assessment and plan:
Postoperative day 1, patient doing very well.
Hemodynamically stable overnight
No immediate complication
Incision is intact, no hematoma
Neurovascular examination is intact
-
Vascular correspondence reviewed: Possible discharge later if patient is able to ambulate.
Operative report reviewed.
-
Continue with analgesia with as needed narcotics. Patient not using much. Monitor respiratory status closely.
-
Advance diet as tolerated
Discontinue IV fluids
Patient does not take any medications in the outpatient setting.
He will discharge on aspirin.
-
DVT prophylaxis with SCD
-
Hopefully discharge planning later today.
--- NOTE | 2023-06-28 10:38 | PN.CDI ---
CDI
- -
CDI:
Physician Documentation Request
Admit Date: 06/26/23 19:36
Dear Doctor Chrissy,
Please review the following and provide your response in the progress notes.
Clinical Indicators:
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
- 06/[address] 'Tortuosity and mild calcification of the distal descending thoracic aorta'
- Admit for right popliteal aneurysm
Please indicate in your progress notes if you are in agreement that the above diagnosis is valid for this patient:
____ - Tortuous thoracic aorta is a valid diagnosis (Please include it in your progress notes)
____ - Tortuous thoracic aorta is not a valid diagnosis for this patient
____ - Tortuous thoracic aorta is not yet confirmed but remains a suspected condition
____ - Other
Use of terms such as suspected, likely, concern for, or probable are acceptable for a diagnosis that is being evaluated, monitored or treated as if it exists and can be coded in the inpatient setting, when documented at the time of discharge.
Thank you,
Laila Dasilva RN
CDI Specialist
Please use your independent medical judgment in providing your response.
[2023-06-28] MEDS: ROXICODONE 5 MG PO ×2 (11:17→15:54)
--- NOTE | 2023-06-28 12:04 | PTCARENOTE ---
OOB to chair since 08:20 . Ambulated in a room and around unit with walker and without. Able to put weight on his RT leg. pain 3/10 pain scale level
--- NOTE | 2023-06-28 13:12 | W.[place]-PDMP ---
[place]PD[place]
-
Checked the [place]- Prescription Drug Monitoring Program website, no red flags identified; safe to proceed with prescription.
--- NOTE | 2023-06-28 13:30 | W.PN.HOSP.TC ---
Today's Communication/Plan
-
dc to home
Assessment / Plan
Assessment / Plan
Rt popliteal artery aneurysm. No hx of trauma to the area
The right common femoral, femoral, popliteal, peroneal, and posterior tibial veins are patent. There is no sonographic evidence for deep venous thrombosis.
A popliteal artery aneurysm measures 3.6 x 3.2 cm. Peripheral hypoechoic thrombus is demonstrated within the aneurysm.
Reviewed with Dr. Dixon, plan is for vascular intervention this morning
Regular Etoh consumption
Pt states generally 2 glasses of wine per day, but can go many days without Etoh and does not have a problem
CT scan also demonstrated: Tortuosity and mild calcification of the distal descending thoracic aorta with no aneurysm.
Borderline HTN
started on Toprol XL, with BP very variable 100-135/77-103, will continue for now
Chol 215
HDL 50
LDL [address]-A will add low dose statin
P; confirmed with Dr. Dixon that does not require OAC
pt cleared for dc by Vasc Surg
see dictated note
More than 30 minutes spent in discharge including
Final examination of the patient
Summarizing hospital stay
Instructions for continuing care to all relevant caregivers
Preparation of discharge records, prescriptions, and referral forms
Total time spent (in minutes):45
Anticipated Discharge: Today
Subjective/Interval History
-
Date of Service: June 28, 2023
Objective Data
-
Labs:
Laboratory Results
06/28/23
04:10
WBC 8.3
Hgb 12.9 L
Hct 36.8 L
Plt Count 241
PT 14.5
INR 1.12
APTT 28.0
Sodium 136
Potassium 4.1
Chloride 106
Carbon Dioxide 23
BUN 13
Creatinine 0.6 L
Glucose 143 H
Calcium 8.1 L
Vital Signs:
Vital Signs
Temp Pulse Resp BP Pulse Ox
97.8 F 78 15 135/103 96
06/28/23 11:29 06/28/23 11:30 06/28/23 11:30 06/28/23 11:19 06/28/23 08:00
I&O
06/27/23 06/28/23 06/29/23
06:59 06:59 06:59
Intake Total 1230 / 1230 720 / 720
Output Total 1275 / 1275 300 / 300
Balance -45 / -45 420 / 420
--- NOTE | 2023-06-28 14:05 | W.DS.TRANS ---
DC Summary - Shell[facility] Sorter
-
Discharge Instructions:
Discharge Diagnosis/Procedures Popliteal Aneurysm
Diet As tolerated
Activity No strenuous activity
Driving Restrictions No driving for 1 week
Bathing Restrictions OK to Shower
Blood Work routine labs
Instructions:
Stand-Alone Forms: DC Instr - Vascular OR
Changes to Home Medications: Yes
Discharge Medications:
DC Medications w/original date entered in [employer]
aspirin 81 mg chewable tablet (Children's Aspirin) 81 mg PO DAILY #90 tabs 06/28/23
atorvastatin 10 mg tablet (Lipitor) 10 mg PO HS #30 tabs 06/28/23
metoprolol succinate 25 mg tablet,extended release 24 hr 25 mg PO BID #60 tabs 06/28/23
oxycodone 5 mg tablet 5 mg PO Q4HPRN PRN moderate pain #7 tabs 06/28/23
Home Medication Changes
all the above added
Pending Results: No
--- NOTE | 2023-06-28 15:44 | PTCARENOTE ---
patient d/c home . All d/c instructions given per d/c orders. peripheral line removed. VSS
== END 2023-06-28 15:59 | disposition home or self-care (01) | DRG 253 ==
LOC: ICU 19:36
PROVIDERS: Nurse Practitioner; ADMITTING PHYSICIAN Internal Medicine; CONSULT PHYSICIAN Internal Medicine Critical Care Medicine; EMERGENCY PHYSICIAN Emergency Medicine; FAMILY PHYSICIAN Family Medicine; OTHER PHYSICIAN Surgery Vascular Surgery
PROC: 04CM0ZZ Extirpation of Matter from Right Popliteal Artery, Open Approach (ICD-10-PCS; 2023-06-27)
PROC: 04R Lower Arteries, Replacement (ICD-10-PCS; 2023-06-27)
DX: I72.4 Aneurysm of artery of lower extremity (principal); I74.3 Embolism and thrombosis of arteries of the lower extremities; Q25.46 Tortuous aortic arch; I10 Essential (primary) hypertension; F10.90 Alcohol use, unspecified, uncomplicated; E78.5 Hyperlipidemia, unspecified; M54.31 Sciatica, right side; Z87.442 Personal history of urinary calculi; Z80.52 Family history of malignant neoplasm of bladder; Z87.891 Personal history of nicotine dependence
CPT/HCPCS: 88304; 35151; 71046; 75635; 80048; 80053; 80061; 81003; 85025; 85027; 85610; 85730; 86850; 86900; 86901; 93005; 93971; 96374; 96375; 99285; Q9967

== ENCOUNTER → 2023-08-15 14:05 | Outpatient (REF) | payer MEDICARE, OTHER, SELFPAY | LOC: RAD 14:05 | PROVIDERS: ATTENDING PHYSICIAN Physician Assistant; FAMILY PHYSICIAN Family Medicine | DX: I72.4 Aneurysm of artery of lower extremity (principal) | CPT/HCPCS: 93922; 93925 ==

== ENCOUNTER → 2024-05-02 09:42 | Outpatient (REF) | payer MEDICARE, OTHER, SELFPAY | LOC: RAD 09:42 | PROVIDERS: ATTENDING PHYSICIAN Surgery Vascular Surgery; FAMILY PHYSICIAN Family Medicine | DX: I72.4 Aneurysm of artery of lower extremity (principal) | CPT/HCPCS: 93922; 93925 ==

== ENCOUNTER → 2024-11-28 06:59 | Outpatient (REF) | payer MEDICARE, OTHER, SELFPAY | LOC: RAD 06:59 | PROVIDERS: ATTENDING PHYSICIAN Surgery Vascular Surgery; FAMILY PHYSICIAN Family Medicine | DX: I72.4 Aneurysm of artery of lower extremity (principal) | CPT/HCPCS: 93922; 93925 ==